=== PATIENT | female | born 1980 | race Caucasian/White ===

== ENCOUNTER 2016-09-16 12:34 | Emergency (ER) | payer MEDICAID ==
[~2016-09-16] VITALS: Ht 160 cm; Wt 60.0 kg
[~2016-09-16 12:34] MED LIST: FLUO20CA19 PO; GABA300C10 PO; GABA600T2 PO; OXYC-223 PO; PANT40TA5 PO; TIZA2CAP2 PO; TOPI200T25 PO
[2016-09-16 12:37] VITALS: BP 125/75
== END 2016-09-16 13:10 | disposition home or self-care (01) ==
LOC: ED 13:04
DX: J20.8 Acute bronchitis due to other specified organisms (principal); B96.89 Other specified bacterial agents as the cause of diseases classified elsewhere; J06.9 Acute upper respiratory infection, unspecified; G43.909 Migraine, unspecified, not intractable, without status migrainosus; J45.909 Unspecified asthma, uncomplicated; F17.210 Nicotine dependence, cigarettes, uncomplicated
CPT/HCPCS: 99283

== ENCOUNTER 2016-09-19 23:00 | Emergency (ER) | payer MEDICAID ==
[~2016-09-19] VITALS: Ht 160 cm; Wt 71.4 kg
[2016-09-19] MEDS ORDERED: HYDROcodone/APAP 5/325 TABLET PO STA (23:22)
[2016-09-19] MEDS ORDERED: NEO/POLY/HC EAR SUSP 10ML RIGHT EAR STA (23:22)
[2016-09-19] MEDS ORDERED: HYDROcodone/APAP 5/325 TABLET ONE (23:27)
[2016-09-19 23:50] VITALS: BP 124/78
== END 2016-09-19 23:53 | disposition home or self-care (01) ==
LOC: ED 23:34
DX: H66.43 Suppurative otitis media, unspecified, bilateral (principal); H72.03 Central perforation of tympanic membrane, bilateral; E05.90 Thyrotoxicosis, unspecified without thyrotoxic crisis or storm; G43.909 Migraine, unspecified, not intractable, without status migrainosus; J45.909 Unspecified asthma, uncomplicated
CPT/HCPCS: 99283

== ENCOUNTER 2016-10-02 08:59 | Emergency (ER) | payer MEDICAID ==
[~2016-10-02] VITALS: Ht 160 cm; Wt 67.8 kg
[2016-10-02 09:03] VITALS: BP 126/87
[2016-10-02] MEDS ORDERED: DIPH,PERTUSS(ACELL),TET VAC/PF 0.5 ML IM-VACC ONE ×2 (09:49→10:00)
[2016-10-02] MEDS ORDERED: LIDOCAINE 1%, 20ML ONE (09:56)
[2016-10-02] MEDS ORDERED: LIDOCAINE 2%, 20ML SQ ONE (10:00)
== END 2016-10-02 10:30 | disposition home or self-care (01) ==
LOC: ED 09:48
DX: S61.210A Laceration without foreign body of right index finger without damage to nail, initial encounter (principal); E05.90 Thyrotoxicosis, unspecified without thyrotoxic crisis or storm; G43.909 Migraine, unspecified, not intractable, without status migrainosus; J45.909 Unspecified asthma, uncomplicated; W26.8XXA Contact with other sharp object(s), not elsewhere classified, initial encounter; Y93.89 Activity, other specified; Y92.89 Other specified places as the place of occurrence of the external cause; Y99.8 Other external cause status
CPT/HCPCS: 12001; 90471; 90715; 99283

== ENCOUNTER 2017-02-07 12:15 | Emergency (ER) | payer MEDICAID ==
[~2017-02-07] VITALS: Ht 160 cm; Wt 74.0 kg
[~2017-02-07 12:15] MED LIST changes: -OXYC-223 PO; +OXYC-306 PO
[2017-02-07] MEDS ORDERED: SODIUM CHLORIDE 0.9% 1,000 ML IV ONE (12:48)
[2017-02-07] MEDS ORDERED: MAALOX/HYOSCYAMINE/LIDOCAINE 45 ML BTL PO ONE (13:00)
[2017-02-07] MEDS ORDERED: FAMOTIDINE 20 MG/2 ML IVP ONE (13:00)
[2017-02-07] MEDS ORDERED: ONDANSETRON 2MG/ML, 2ML IVPush ONE (13:00)
[2017-02-07] MEDS ORDERED: morphine SULFATE 10 MG/ML, 1ML ONE ×2 (13:24→14:59)
[2017-02-07 13:25] LABS: HCG UR LOT HCG7030192
[2017-02-07] MEDS ORDERED: MAALOX/HYOSCYAMINE/LIDOCAINE 45 ML BTL ONE (13:25)
[2017-02-07] MEDS ORDERED: ONDANSETRON 2MG/ML, 2ML ONE (13:25)
[2017-02-07] MEDS ORDERED: FAMOTIDINE 20 MG/2 ML ONE (13:25)
[2017-02-07] MEDS: MORPHINE SULFATE 4 MG/ML, 1ML IVPush PRN ×2 (13:28→15:02)
[2017-02-07 13:31] LABS: HEMATOCRIT 41.2 % (34.6-47.8); HEMOGLOBIN 14.2 g/dL (11.7-16.4); WHITE BLOOD COUNT 7.5 x10^3/uL (3.4-10)
[2017-02-07 13:36] LABS: HCG UR OBC PASS
[2017-02-07 13:37] LABS: ASPARTATE AMINO TRANSFERASE 14 U/L (15-37); BLOOD UREA NITROGEN 17 mg/dL (7-18)
[2017-02-07 13:42] LABS: PATH.CAST-FLAG NOT PRESENT; SPERM-FLAG NOT PRESENT; SRC-FLAG NOT PRESENT; XTAL-FLAG NOT PRESENT; YLC-FLAG NOT PRESENT
[2017-02-07 16:31] VITALS: BP 119/70
== END 2017-02-07 16:36 | disposition home or self-care (01) ==
LOC: ED 16:30
DX: K29.00 Acute gastritis without bleeding (principal); K21.9 Gastro-esophageal reflux disease without esophagitis; E03.9 Hypothyroidism, unspecified; G43.909 Migraine, unspecified, not intractable, without status migrainosus
CPT/HCPCS: 36415; 74022; 76700; 80053; 81001; 81025; 83605; 83690; 85025; 86677; 96361; 96374; 96375; 99285; J2405; J7030; S0028